=== PATIENT | female | born 1990 | race Caucasian/White ===

== ENCOUNTER 2021-03-11 05:32 | Inpatient (IN) ==
[2021-03-11] MEDS ORDERED: MEPERIDINE 50 MG/1 ML VIAL IM PRN (05:43)
[2021-03-11] MEDS ORDERED: BUTORPHANOL 1 MG/ML VIAL IV PRN (05:43)
[2021-03-11] MEDS ORDERED: ONDANSETRON 4 MG/2 ML VIAL IV PRN ×2 (05:43→19:04)
[2021-03-11 06:08] LABS: Basophils % 0.2 % (0.0-0.8); Eosinophils # 0.1 10*3/uL (0.0-0.87); Eosinophils % 0.4 % (0.00-10.9); Hematocrit 38.1 VOL% (35.7-47.0); Hemoglobin 12.2 GM/DL (12.0-16.0); Immature Granulocytes % 0.7 %; Immature Granulocytes Absolute 0.09 #; Lymphocytes # 2.7 10*3/uL (1.4-4.0); Lymphocytes % 21.3 % (21.3-54.2); Mean Corpuscular Volume 93.8 FL (87-102); Mean Platelet Volume 12.5 FL (9.6-12.0); Monocytes % 7.5 % (1.7-12.7); Neutrophils % 69.9 % (38.7-73.9); Platelet Count 179 T/CUMM (130-400); Red Blood Count 4.06 MC/CUMM (3.8-5.5); Red Cell Distribution Width 14.4 % (9.3-17.3); White Blood Count 12.9 T/CUMM (4-12)
[2021-03-11] MEDS: LACTATED RINGERS 1,000 ML IV SCH ×2 (06:15→08:39)
[2021-03-11 06:34] LABS: Albumin 2.3 G/DL (3.4-5.0); Bilirubin,Total 0.9 MG/DL (0.2-1.0); Calcium 8.6 MG/DL (8.5-10.1); Osmolality,Calculated 272.8 MOS/KG (273-304); Potassium 3.5 MMOL/L (3.5-5.1); Total Protein 6.4 G/DL (6.4-8.2)
[2021-03-11] MEDS: OXYTOCIN/LR 20 UNIT/1,000 ML BAG IV SCH ×2 (07:36→16:46)
[2021-03-11] MEDS ORDERED: LACTATED RINGERS 1,000 ML IV ONE (08:46)
[2021-03-11] MEDS ORDERED: FAMOTIDINE 20 MG/2 ML VIAL IV ONE (08:46)
[2021-03-11] MEDS ORDERED: CITRIC ACID/SODIUM CITRATE 30 ML UDCUP PO ONE (08:46)
[2021-03-11] MEDS ORDERED: NALOXONE 0.4 MG/ML VIAL IV PRN (08:46)
[2021-03-11] MEDS ORDERED: ePHEDrine 50 MG/ML VIAL IV PRN (08:46)
[2021-03-11] MEDS ORDERED: fentaNYL 2 MCG/ROPIV 0.2% EPID 100 ML EPIDURAL SCH (09:00)
[2021-03-11 10:46] LABS: Bilirubin,Urine Negative (Negative); Blood, Urine Small mg/dL (Negative); Glucose,Urine (UA) Negative (Negative); Ketones,Urine Negative (Negative); Mucus,Urine Occasional /LPF (Occasional); Nitrite,Urine Negative (Negative); Protein,Urine Negative; RBC,Urine <1 /HPF (0-4); Squamous Epithelial Cell,Urine Occasional /HPF (0-10); Urine Appearance CLEAR (Clear); Urine Color Yellow (Yellow); Urine Specific Gravity 1.008 (1.001-1.035); Urine Urobilinogen < 2.0 EU/DL (0.2-1.0)
[2021-03-11] MEDS ORDERED: OXYTOCIN/LR 20 UNIT/1,000 ML BAG IV ONE ×2 (13:51→19:04)
[2021-03-11] MEDS ORDERED: METHYLERGONOVINE 0.2 MG/1 ML AMP ONE (13:51)
[2021-03-11] MEDS ORDERED: CARBOPROST TROMETHAMINE 250 MCG/ML AMP IM ONE (13:51)
[2021-03-11] MEDS ORDERED: TRANEXAMIC ACID 1,000 MG/10 ML VIAL ONE (13:51)
[2021-03-11] MEDS ORDERED: miSOPROStoL 200 MCG TABLET ONE (13:51)
[2021-03-11 14:37] LABS: Cord Arterial Blood HCO3 22.8 MMOL/L; Cord Venous Blood HCO3 24.1 MMOL/L; Cord Venous Blood PO2 32.6 MMHG
[2021-03-11] MEDS ORDERED: LANOLIN 50% CREAM 0.3 OZ TUBE TOP PRN (19:04)
[2021-03-11] MEDS ORDERED: BENZOCAINE 20%/MENTHOL 0.5% SPRAY 56 GM CAN TOP PRN (19:04)
[2021-03-11] MEDS ORDERED: oxyCODONE/ACETAMINOPHEN 5-325 MG TABLET PO PRN ×2 (19:04)
[2021-03-11] MEDS ORDERED: BISACODYL 10 MG SUPP RECTAL PRN (19:04)
[2021-03-11] MEDS ORDERED: WITCH HAZEL PADS 100/JAR TOP PRN (19:04)
[2021-03-11] MEDS ORDERED: ACETAMINOPHEN 325 MG TABLET PO PRN (19:04)
[2021-03-11] MEDS ORDERED: HYDROCORTISONE 2.5% RECTAL CREAM 30 GM TUBE TOP PRN (19:04)
[2021-03-11] MEDS ORDERED: RHO(D) IMMUNE GLOBULIN 300 MCG SYRINGE IM ONE (19:04)
[2021-03-11] MEDS ORDERED: DIPH/TET/ACEL PERT BOOSTER VACCINE 0.5 ML VIAL IM ONE (19:04)
[2021-03-11] MEDS ORDERED: MEASLES/MUMPS/RUBELLA VACCINE 0.5 ML VIAL SUBCUT ONE (19:04)
[2021-03-11] MEDS: IBUPROFEN 800 MG TABLET PO PRN (19:15)
[2021-03-11] MEDS: DOCUSATE SODIUM 100 MG CAPSULE PO SCH (20:10)
[2021-03-12 05:19] LABS: Basophils % 0.2 % (0.0-0.8); Eosinophils % 0.3 % (0.00-10.9); Hematocrit 31.4 VOL% (35.7-47.0); Immature Granulocytes % 0.7 %; Immature Granulocytes Absolute 0.09 #; Lymphocytes # 2.4 10*3/uL (1.4-4.0); Mean Corpuscular HGB Conc 32.5 GM/DL (32-36); Mean Corpuscular Volume 91.5 FL (87-102); Mean Platelet Volume 13.2 FL (9.6-12.0); Neutrophils % 74.8 % (38.7-73.9); Platelet Count 145 T/CUMM (130-400); Red Blood Count 3.43 MC/CUMM (3.8-5.5); Red Cell Distribution Width 14.5 % (9.3-17.3); White Blood Count 13.4 T/CUMM (4-12)
[2021-03-12 05:21] LABS: Hemoglobin 10.2 GM/DL (12.0-16.0)
[2021-03-12 05:43] LABS: Hypochromasia Slight; Microcytosis Slight; Platelet Estimate Adequate
[2021-03-12] MEDS: IBUPROFEN 800 MG TABLET PO PRN (07:35)
[2021-03-12] MEDS: DOCUSATE SODIUM 100 MG CAPSULE PO SCH ×3 (07:37→21:29)
[2021-03-13 07:07] VITALS: BP 117/72
[2021-03-13] MEDS: DOCUSATE SODIUM 100 MG CAPSULE PO SCH (08:47)
[2021-03-13] MEDS ORDERED: metroNIDAZOLE 500 MG TABLET PO ONE (09:49)
== END 2021-03-13 11:45 | disposition home or self-care (01) | DRG 807 ==
LOC: N.LD 05:32 → N.OB 18:57
PROVIDERS: ADMIT Obstetrics & Gynecology; ATTEND Obstetrics & Gynecology